=== PATIENT | female | born 1940 | race Caucasian/White ===

== ENCOUNTER → 2016-12-20 | Outpatient (CLI) | payer MEDICARE, MEDICAID ==
--- NOTE | 2016-12-20 17:28 | RADRPT ---
PROCEDURE: Left knee radiographs. CLINICAL INDICATION: Left knee pain. TECHNIQUE: Three views. Weight bearing. Frontal, lateral, and patellar view. COMPARISON: No prior studies are available for comparison. FINDINGS: There is no fracture or dislocation. The soft tissues are normal. There are degenerative changes with osteophytes arising from all 3 joint compartment margins. There is lateral joint compartment narrowing and patellofemoral joint compartment narrowing with deformit y. There is no lytic or blastic lesion. There is no radiopaque foreign body. IMPRESSION: 1. Moderate to severe degenerative changes of the left knee. 2. No acute abnormality. RPTAT: QQ .Dakota Mcgee MD, MD Date Time Electronically viewed and signed by .Dakota Mcgee MD, MD on 12/20/2016 17:28 .R/
--- NOTE | 2016-12-20 18:14 | RADRPT ---
PROCEDURE: XR Left Hip and pelvis. CLINICAL INDICATION: Left hip pain. Pelvic pain. TECHNIQUE: Two views. Frontal pelvis and lateral left hip. COMPARISON: No prior studies are available for comparison. FINDINGS: There is a right hip total arthroplasty which appears satisfactory. There is no fracture, dislocati on, or loosening. There are moderate degenerative changes of the left hip with joint space narrowing and osteophytes. There is no fracture or dislocation. There is no lytic or blastic lesion. The upper pelvis is not completely included on the images. IMPRESSION: 1. Satisfactory postoperative appearance of the right hip. 2. Moderate degenerative changes of the left hip. RPTAT: QQ .Dakota Mcgee MD, MD Date Time Electronically viewed and signed by .Dakota Mcgee MD, on 12/20/2016 18:14 .R/
--- NOTE | 2016-12-20 22:39 | HKNOTE ---
DATE OF SERVICE: 12/20/2016 REFERRING PHYSICIAN: Oj Orosco MD, [place] MAIN COMPLAINT: 1. Pain in the left hip. 2. Pain in the left knee. HISTORY OF MAIN COMPLAINT: The patient is a 76-year-old female who developed polio in 1954, when laney dawkins was approximately 14 years old. She was in an iron lung for approximately 6 to 8 months. She was left with residuals in her left arm, muscle atrophies in both hands, and severe scoliosis. The lef t arm became completely atrophied. The patient survived the ordeal and went on to become a and mother. About 4 years ago, she dev eloped postpolio syndrome in 1992. In 2006, she underwent a right hip replacement by Dr. Cesar hemphill at [facility]. She has had a good result from the surgery. She now complains of pain in he r left hip and left knee, which have been present for several months. The patient is being seen here today for her left hip and left knee. She was referred by Dr. Oj Orosco. PRESENT COMPLAINTS: The left hip is much worse than the pain in the left knee. Pain in the left hi p is localized over the left greater trochanter and radiates down the lateral aspect of the left thi gh for about 8 inches. The pain in the left knee is localized to the knee itself and seems to be lo cated more anteriorly. The pain is aggravated by weightbearing. The patient's pain in her left buttocks does not radiate down the leg more than about 8 inches. The re is no numbness or tingling in either leg. She does get occasional pain in the lower back. She n ever had an MRI scan of the lumbar spine. On a level surface, she cannot walk more than a short dis tance (20 feet perhaps). She uses her motorized scooter most of the time. The patient does not hav e a shoe lift. She can clip her toenails and tie her shoelaces. PAST ORTHOPEDIC HISTORY: In 2006, right hip replacement by Dr. Cesar Simpson at [facility]. PRIOR CORTISONE INTAKE: Injections into the left knee and right shoulder on occasion ____. OTHER JOINT PROBLEMS: Postpolio syndrome. BLOOD TESTS FOR ARTHRITIS: None. PRIOR INJURIES TO HIPS OR KNEES: None. WORK STATUS: The patient is retired. PAST MEDICAL HISTORY: 1. Type 2 diabetes. 2. Respiratory problems. PAST SURGICAL HISTORY: Right hip replacement by Dr. Simpson, 2006. ALLERGIES: NONE. MEDICATIONS: 1. Benazepril 40 mg daily for hypertension. 2. Paroxetine 20 mg daily for . 3. Hydrochlorothiazide 25 mg a day for hypertension. 4. Atorvastatin 20 mg a day for ____. 5. Januvia 200 mg daily for diabetes. 6. Amoxicillin for recent pulmonary infection. 7. Metformin 500 mg twice a day. 8. Fenofibrate 134 mg once a day by mouth. 9. Ranitidine hydrochloride 300 mg once at bedtime. 10. Omeprazole 20 mg a day. 11. Xanax 1 mg daily. 12. Oxycodone 30 mg 3 times a day. 13. Dilaudid 4 mg 4 times a day. 14. ____ 1000 mg once a day. FAMILY HISTORY: Father at 90 of diabetes. Mother at 90 of unstated causes. SYSTEMS REVIEW: Hypertension, diabetes, weakness of both legs. HABITS: The patient smokes half a pack a day. Alcohol intake minimal. 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 PHYSICAL EXAMINATION GENERAL: The patient is a rather fragile looking 76-year-old female. She comes in on her motorized scooter. VITAL SIGNS: Height 5 feet. Weight 189 pounds, blood pressure 100/55, temperature 98.5. GAIT: The patient is able to get out of the motorized scooter and even get up onto the examination couch by herself. She does not appear to be in a great deal of pain. RIGHT HIP: A full range of motion without pain. LEFT HIP: A full range of motion without pain. Marked tenderness over the left greater trochanter. ____ KNEE: The left knee shows normal alignment. Active and passive extension is 0 degrees. Activ e and passive flexion is to 100 degrees (marked pain on attempting further flexion). The medial and lateral collateral ligaments and cruciate ligaments are intact. Elva test is negative. There i s no effusion, tenderness, scarring, crepitus, or cysts. The patella tracks normally. There is no tenderness on the articular surface of the patella or in the patellar groove. The Q angle is normal . LEFT KNEE: The left knee shows normal alignment. Active and passive extension is 0 degrees. Activ e and passive flexion is 135 degrees. The medial and lateral collateral ligaments and cruciate liga ments are intact. Elva test is negative. There is no effusion, tenderness, scarring, or cysts. The patella tracks normally. There is no tenderness on the articular surface of the patella or in the patellar groove. The Q angle is normal. 4+ crepitus in the knee, none in the patella. IMAGING: Plain x-rays of the left knee obtained today show moderate degenerative osteoarthritis aff ecting all 3 compartments of the knee, but most severely at the patellofemoral joint. There is fair ly good joint space remaining. Imaging of the pelvis and hips obtained today show about 50% loss of the left hip joint space. The right hip shows a total hip replacement components, which appear to be well aligned and well heel attacher d to bone. DIAGNOSES: 1. Trochanteric bursitis of the left hip 1. Degenerative osteoarthritis of the left knee. 2. Status post polio residuals. 4. Status post polio syndrome. 5. Scoliosis. 6. Hypertension. 7. Diabetes mellitus. 8. A history of peptic ulcer disease. MANAGEMENT: Under sterile conditions, given injection of 2 mL of Kenalog and 6 mL of 2% lidocaine i nto the left knee. This was followed with a similar amount into the left hip joint. The patient will be seen again as necessary for further evaluation and treatment. centers Dr. Oj orosco Dictated By: FABIAN TORRES/AZAM Conf#: [id number] DID#: [id number]
== END | disposition home or self-care (01) ==
LOC: HKI 15:10
DX: M25.562 Pain in left knee (principal); M25.552 Pain in left hip; M70.62 Trochanteric bursitis, left hip; M17.12 Unilateral primary osteoarthritis, left knee; M41.9 Scoliosis, unspecified; I10 Essential (primary) hypertension; E11.9 Type 2 diabetes mellitus without complications
CPT/HCPCS: 20610; 73502; 73562; G0463

== ENCOUNTER → 2017-10-30 | Outpatient (CLI) | END | disposition home or self-care (01) ==